=== PATIENT | male | born 1960 | race Caucasian/White ===

== ENCOUNTER 2023-08-25 07:32 | Day surgery (SDC) | payer OTHER ==
[2023-08-18 16:04] VITALS: BMI 23.7
[2023-08-25 07:49] VITALS: BP 126/80; PULSE 40; RESP 19; TEMP 97.3
== END 2023-08-25 09:27 | disposition home or self-care (01) ==
LOC: FASU-ENDO 07:32
PROVIDERS: ATTEND Internal Medicine Gastroenterology
PROC: 0DJD8ZZ Inspection of Lower Intestinal Tract, Via Natural or Artificial Opening Endoscopic (ICD-10-PCS; principal; 2023-08-25)
DX: Z53.09 Procedure and treatment not carried out because of other contraindication (principal)